=== PATIENT | male | born 1950 | race Caucasian/White ===

== ENCOUNTER 2021-06-20 19:00 | Outpatient (CLI) | payer MEDICARE, BC | END 2021-06-20 19:01 | disposition home or self-care (01) | LOC: SLEEPLAB 19:00 | DX: G47.33 Obstructive sleep apnea (adult) (pediatric) (principal); R06.83 Snoring; G47.10 Hypersomnia, unspecified; G47.00 Insomnia, unspecified; E11.9 Type 2 diabetes mellitus without complications; I10 Essential (primary) hypertension | CPT/HCPCS: 95811 ==